=== PATIENT | female | born 1970 | race Two or more races ===

== ENCOUNTER 2023-09-11 05:00 | Day surgery (SDC) | payer OTHER ==
[~2023-09-11] VITALS: Ht 170.2 cm; Wt 80.3 kg
== END 2023-09-11 15:30 | disposition home or self-care (01) ==
LOC: CIR.AMB 05:00 → AMB-ENDOS 07:00 → CIR.AMB 07:00 → AMB-ENDOS 15:00 → CIR.AMB 15:00
PROVIDERS: ATTEND Specialist
DX: N62 Hypertrophy of breast (principal); N64.89 Other specified disorders of breast; N60.91 Unspecified benign mammary dysplasia of right breast; R92.1 Mammographic calcification found on diagnostic imaging of breast; D48.62 Neoplasm of uncertain behavior of left breast; N60.92 Unspecified benign mammary dysplasia of left breast; N60.02 Solitary cyst of left breast